=== PATIENT | male | born 1975 | race Caucasian/White ===

== ENCOUNTER 2016-08-26 13:26 | Emergency (ER) | payer BC ==
--- NOTE | 2016-08-26 13:34 | EDM.PDOC ---
ED HPI Trauma - General Chief Complaint: Upper Extremity Injury/Pain Stated Complaint: SHOULDER Time Seen by Provider: 08/26/16 13:33 Source: Reports: Patient - History of Present Illness INITIAL COMMENTS - FREE TEXT/NARRATIVE: HISTORY AND PHYSICAL: History of present illness: [] Presents with left shoulder pain intermittently over the last couple of days , patient slept on her shoulder, initially ibuprofen relieve pain night before last, however last night he slept on the shoulder again causing denies any injury or trauma no fever nausea vomiting chills sweats increased pain 7/10 with movement Review of systems: As per history of present illness and below otherwise all systems reviewed and negative. Past medical history: As per history of present illness and as reviewed below otherwise noncontributory. Surgical history: As per history of present illness and as reviewed below otherwise noncontributory. Social history: No reported history of drug or alcohol abuse. Family history: As per history of present illness and as reviewed below otherwise noncontributory. Physical exam: HEENT: Atraumatic, normocephalic, pupils reactive, negative for conjunctival pallor or scleral icterus, mucous membranes moist, throat clear, neck supple, nontender, trachea midline. Lungs: Clear to auscultation, breath sounds equal bilaterally, chest nontender. Heart: S1S2, regular, negative for clicks, rubs, or JVD. Abdomen: Soft, nondistended, nontender. Negative for masses or hepatosplenomegaly. Negative for costovertebral tenderness. Pelvis: Stable nontender. Genitourinary: Deferred. Rectal: Deferred. Extremities: Atraumatic, negative for cords or calf pain. Neurovascular unremarkable. Left upper extremity no pain with head movement elbow and wrist unaffected no redness warmth or swelling muscle tenderness on palpation throughout shoulder girdle, does not appear to be a rotator cuff involvement entire limb nerve neurovascularly intact Neuro: Awake, alert, oriented. Cranial nerves II through XII unremarkable. Cerebellum unremarkable. Motor and sensory unremarkable throughout. Exam nonfocal. Diagnostics: [] Left shoulder Therapeutics: [] rest ice ibuprofen Known sleep on the shoulder Impression: [] left shoulder pain Muscle spasm Definitive disposition and diagnosis as appropriate pending reevaluation and review of above. Allergies/ADRs: Allergies cephalexin [From Keflex] Allergy (Verified 08/26/16 13:40) Other Home Medications: Ambulatory Orders . [Unable to Verify Home Med List] 08/26/16 [Confirmed 08/26/16] Review of Systems - Review of Systems Review Of Systems: ROS reveals no pertinent complaints other than HPI. Trauma Exam - Physical Exam Exam: See Below Course - Vital Signs Last Recorded V/S: Last Vital Signs Temp 36.4 C 08/26/16 13:42 Pulse 79 08/26/16 13:42 Resp 16 08/26/16 13:42 BP 119/79 08/26/16 13:42 Pulse Ox 97 08/26/16 13:42 - Orders/Labs/Meds Orders: Active Orders 24 hr Category Date Time Status Shoulder Comp Lt [CR] Stat Exams 08/26/16 13:36 Taken Departure - Departure Time of Disposition: 14:26 Disposition: Home, Self-Care 01 Condition: good Clinical Impression: Muscle spasm Forms: ED Department Discharge Additional Instructions: Rest Ice 20 minute intervals 3 times daily 7-10 days Ibuprofen ordered milligrams 3 times daily 7-10 days Followup with primary care as needed The following information is given to patients seen in the emergency department who are being discharged to home. This information is to outline your options for follow-up care. We provide all patients seen in our emergency department with a follow-up referral. The need for follow-up, as well as the timing and circumstances, are variable depending upon the specifics of your emergency department visit. If you don't have a primary care physician on staff, we will provide you with a referral. We always advise you to contact your personal physician following an emergency department visit to inform them of the circumstance of the visit and for follow-up with them and/or the need for any referrals to a consulting specialist. The emergency department will also refer you to a specialist when appropriate. This referral assures that you have the opportunity for follow-up care with a specialist. All of these measure are taken in an effort to provide you with optimal care, which includes your follow-up. Under all circumstances we always encourage you to contact your private physician who remains a resource for coordinating your care. When calling for follow-up care, please make the office aware that this follow-up is from your recent emergency room visit. If for any reason you are refused follow-up, please contact the [facility] emergency department at and asked to speak to the emergency department charge nurse. - My Orders Last 24 Hours: My Active Orders 08/26/16 13:36 Shoulder Comp Lt [CR] Stat - Assessment/Plan Last 24 Hours: My Active Orders 08/26/16 13:36 Shoulder Comp Lt [CR] Stat
[2016-08-26 13:46] VITALS: BP 119/79
--- NOTE | 2016-08-28 17:43 | CR ---
EXAM DATE: 08/26/16 PATIENT'S AGE: 41 Patient: LINDA VILLASENOR Facility: [place], [place] Site . Site : [id number] Study: XRay Shoulder Left [id number] 2:09:33 PM Ordering Physician: Doctor Augustin Final Report: INDICATION: Pain. No known injury. Technique: No acute bony abnormality. Joint spaces are maintained. No soft tissue calcifications. Impression: Negative left shoulder. Dictated by Meli Peraza MD @ Aug 26 2016 2:24PM (Electronic Signature) Report Signed by Proxy and Original Signed Document filed in the Medical Record. MAURICIO
== END 2016-08-26 14:46 | disposition home or self-care (01) ==
LOC: MW.ED 13:26
DX: M25.512 Pain in left shoulder (principal); M62.830 Muscle spasm of back; Z88.6 Allergy status to analgesic agent
CPT/HCPCS: 73030-26-LT; 73030-LT; 99282; 99283